=== PATIENT | female | born 1990 | race Caucasian/White ===

== ENCOUNTER 2020-11-03 19:06 | Emergency (ER) | payer MEDICAID ==
[~2020-11-03] VITALS: Ht 167.6 cm; Wt 52.2 kg
[2020-11-03 19:20] VITALS: BP_SYST 103
[2020-11-03] MEDS ORDERED: MORPHINE 4 MG INJ. 4 MG/ML VIAL IM ONE (20:15)
[2020-11-03] MEDS ORDERED: MORPHINE 4 MG INJ. 4 MG/ML VIAL ONE (20:15)
[2020-11-03 21:00] LABS: BILIRUBIN,URINE NEGATIVE (NEGATIVE); BLOOD, URINE NEGATIVE (NEGATIVE); CLARITY/URINE CLEAR (CLEAR); COLOR,URINE YELLOW (YELLOW); GLUCOSE,URINE NEGATIVE (NEGATIVE); KETONES,URINE NEGATIVE (NEGATIVE); LEUKOCYTE ESTERASE ,URINE NEGATIVE (NEGATIVE); NITRITE, URINE NEGATIVE (NEGATIVE); PROTEIN URINE NEGATIVE (NEGATIVE); UROBILINOGEN,URINE 0.2 (0.2-1.0)
[2020-11-03 21:56] LABS: BASOPHILS # (AUTO) 0.1 K/uL (0.0-0.2); BASOPHILS % (AUTO) 0.9 % (0.0-2.0); EOSINOPHILS # (AUTO) 0.4 K/uL (0.0-0.4); EOSINOPHILS % (AUTO) 6.2 % (0.0-4.0); HEMATOCRIT 38.2 % (36-48); HEMOGLOBIN 12.9 g/dL (12.0-16.0); LYMPHOCYTES # (AUTO) 2.7 K/uL (1.0-5.5); LYMPHOCYTES % (AUTO) 46.2 % (20.5-51.5); MEAN CORPUSCULAR HEMOGLOBIN 30 pg (27-31); MEAN CORPUSCULAR HGB CONC 34 % (32-36); MEAN CORPUSCULAR VOLUME 89 fL (79.0-98.0); MONOCYTES # (AUTO) 0.7 K/uL (0.0-1.0); MONOCYTES % (AUTO) 12.1 % (1.7-9.3); NEUTROPHILS # (AUTO) 2.1 K/uL (1.8-7.7); NEUTROPHILS % (AUTO) 34.6 % (40.0-70.0); PLATELET COUNT (AUTO) 264 K/uL (130-430); RED CELL DISTRIBUTION WIDTH 12.5 % (9.0-15.0)
[2020-11-03 22:05] LABS: CREATININE 0.7 mg/dL (0.55-1.30); POTASSIUM 3.7 mmol/L (3.5-5.1)
[2020-11-03 22:11] LABS: ALBUMIN 3.6 g/dL (3.4-4.8); TOTAL BILIRUBIN 0.3 mg/dL (0.0-1.0)
[2020-11-03] MEDS ORDERED: IBUP-1969 PO (22:21)
[2020-11-03 22:40] VITALS: BP_SYST 98
== END 2020-11-03 22:40 | disposition home or self-care (01) ==
LOC: SED 19:06
DX: M54.5 Low back pain (principal); Z79.899 Other long term (current) drug therapy
CPT/HCPCS: 36415; 72131; 74176; 76376; 80053; 81003; 85025; 96372; 99285; J2270